=== PATIENT | male | born 1975 | race Caucasian/White ===

== ENCOUNTER 2016-05-10 06:37 | Day surgery (SDC) | payer MEDICARE, MEDICAID ==
[~2016-05-10] VITALS: Ht 170.2 cm; Wt 100.6 kg
== END 2016-05-10 11:30 | disposition home or self-care (01) ==
LOC: RAD.S 06:37 → EDSTATUS 08:00 → RAD.S 08:00
PROC: B51WYZZ Fluoroscopy of Dialysis Shunt/Fistula using Other Contrast (ICD-10-PCS; principal; 2016-05-10)
DX: T82.858A Stenosis of other vascular prosthetic devices, implants and grafts, initial encounter (principal); N18.6 End stage renal disease; Z88.0 Allergy status to penicillin; Z88.8 Allergy status to other drugs, medicaments and biological substances; Z79.899 Other long term (current) drug therapy; Z79.4 Long term (current) use of insulin

== ENCOUNTER 2016-07-21 11:57 | Emergency (ER) | payer MEDICARE, MEDICAID ==
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
== END 2016-07-21 13:40 | disposition home or self-care (01) ==
LOC: ER 11:57
DX: J45.901 Unspecified asthma with (acute) exacerbation (principal); I10 Essential (primary) hypertension; E11.9 Type 2 diabetes mellitus without complications; Z79.899 Other long term (current) drug therapy; Z95.1 Presence of aortocoronary bypass graft; Z88.0 Allergy status to penicillin